=== PATIENT | female | born 1970 | race African-American/Black ===

== ENCOUNTER 2019-11-28 16:31 | Emergency (ER) | payer OTHER ==
--- OUTSIDE RECORDS SUMMARY | 2019-11-28 16:39 | XMS REPORT | Continuity of Care Document ---
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 Problems Description No Information Available Social History Type Date Description Comments Sex Unknown Tobacco Use Start: Unknown Patient has never smoked Smoking Status Reviewed: 10/14/19 Patient has never smoked Allergies, Adverse Reactions, Alerts Active Allergies Reaction Severity Comments Date Seasonal 08/25/2019 Amicar Nausea Mild Switch to subcutaneous 09/01/2019 Inactive Allergies NKDA 08/25/2019 Medications Active Medications SIG Qnty Indications Ordering Date Provider Duloxetine HCL take one cap by 60caps M79.[address] mouth daily for two MD Pushpa 0 Part weeks then increase to twice daily BD 1ML Tuberculin use for weekly 12units M06.9 Wagner Syringe/Safetyglide TB injection of MD Pushpa 9 Needle 27GX1/2" methotrexate, use 27G X 1/2" 1 1ml of methotrexate ML Misc (25mg) injected subcutaneously weekly Methotrexate Sodium Inject 25mg 6ml M06.9 Wagner 50mg/2ML subcutaneously MD Pushpa 9 Solution weekly Orencia Inject 125mg 12ml M06.9 Wagner 125mg/ml Soln Prefill subcutaneously MD Pushpa 9 Syringe weekly Hydroxychloroquine take one tab by 90tabs M06.9 Wagner Sulfate mouth daily MD Pushpa 9 200mg Tablets Levothyroxine Sodium 1 by mouth every Unknown 100mcg day 0 Tablets Orencia Unknown 125mg/ml Soln Prefill 0 Syringe Meloxicam James Estes, 7.5mg Tablets 0 Trazodone HCL James Estes, 50mg Tablets MD 0 Folic Acid Take one tab by 90tabs Wagner 1mg Tablets mouth daily except MD Pushpa 0 the day of methotrexate injection Hydroxychloroquine Unknown Sulfate 0 200mg Tablets History Medications BD 1ML for use weekly with 90units Wagner 09/03/2019 - Syringe/Needle/Slip sc methotrexate MD Pushpa 09/02/2019 Tip/Subq/26G X 5/8" 26G X 5/8" 1 ML Misc Securesafe Safety Insulin Inject 1ml (25mg) of 30units M06.9 Wagner 09/01 - Syringes/U-100/1ML/29GX1/ methotrexate MD Pushpa 09/02/2019 2" subcutaneously 29G X 1/2" 1 ML Misc weekly Immunizations CPT Code Status Date Vaccine Lot # [id number] Given 07/06/2019 Influenza Virus Vaccine, Quadrivalent, Split, Preservative Free Vital Signs Date Vital Result Comment 10/14/2019 8:04am Height 64 inches 5'4" Weight 167.00 lb Heart Rate 79 /min BP Systolic 113 mmHg BP Diastolic 81 mmHg Body Temperature 96.9 F Pain Level 8 O2 % BldC Oximetry 98 % BMI (Body Mass Index) 28.7 kg/m2 09/01/2019 2:56pm Height 64 inches 5'4" Weight 165.00 lb Heart Rate 76 /min BP Systolic 116 mmHg BP Diastolic 77 mmHg Body Temperature 96.9 F Pain Level 5 O2 % BldC Oximetry 100 % BMI (Body Mass Index) 28.3 kg/m2 Results Test Acquired Date Facility Test Result H/L Range Note Laboratory test 09/01/2019 [facility] Cyclic <15.6 U [address] [address] Igg [phone] Rheumatoid Factor < 10 IU/mL Normal <15 Erythrocyte Sed Rate 36 mm/Hr High 0-19 C Reactive Protein 3.62 mg/L Normal <8.01 Comp Metabolic 09/01/2019 [facility] Sodium 136 mmol/L Normal 135-[address] [place] [address] [phone] Potassium 3.8 mmol/L Normal 3.5-5.0 Chloride 102 mmol/L Normal 101-111 Co2 Carbon Dioxide 28 mmol/L Normal 22-32 Anion Gap 6 mmol/L Normal 2-11 Glucose 87 mg/dL Normal 70-100 Blood Urea Nitrogen 10 mg/dL Normal 6-24 Creatinine 0.66 mg/dL Normal 0.51-0.95 BUN/Creatinine Ratio 15.2 Normal 8-20 Calcium 9.6 mg/dL Normal 8.6-10.3 Total Protein 8.2 g/dL Normal 6.4-8.9 Albumin 4.0 g/dL Normal 3.2-5.2 Globulin 4.2 g/dL High 2-4 Albumin/Globulin Ratio 1.0 Normal 1-3 Total Bilirubin 0.30 mg/dL Normal 0.2-1.0 Alkaline Phosphatase 41 U/L Normal 34-104 Alt 12 U/L Normal 7-52 Ast 15 U/L Normal 13-39 Egfr Non- 95.6 >60 Egfr 115.7 >60 2 Quantiferon-TB 09/01/2019 [facility] QuantiferonTb Negative Negative 3 [address] [place] [address] [phone] TB1 Ag minus Nil Result 0.02 IU/mL TB2 Ag minus Nil Result 0.02 IU/mL Mitogen minus Nil Result 14.68 IU/mL Nil Result 0.04 IU/mL Laboratory test 09/01/2019 [facility] Hepatitis B Negative Negative [address] [place] [address] [phone] Hepatitis B Caty AB Titer Immune Immune Hepatitis C Antibody 09/01/2019 [facility] HCV Index 0.06 s/c [address] [place] [address] [phone] Hepatitis C Antibody Negative Negative Vitamin B12 09/01/2019 [facility] Vitamin B12 340 pg/mL Normal 180-9[address] [place] [address] [phone] Folic Acid (Folate) > 20.00 ng/mL >3.99 1 REFERENCE VALUE <20.0 (Negative) Test Performed by: [facility] [place] [address] Pattern Assembler: Reji Bennett M.D. Ph.D.; CLIA# [id number] 2 Because ethnic data is not always readily available, this report includes an eGFR for both -Americans and non- Americans. The National Kidney Disease Education Program (NKDEP) does not endorse the use of the MDRD equation for patients that are not between the ages of 18 and 70, are , have extremes of body size, muscle mass, or nutritional status, or are non- or non-. According to the National Kidney Foundation, irrespective of diagnosis, the stage of the disease is based on the level of kidney function: Stage Description GFR(mL/min/1.73 m(2)) 1 Kidney damage with normal or decreased GFR 90 2 Kidney damage with mild decrease in GFR 60-89 3 Moderate decrease in GFR 30-59 4 Severe decrease in GFR 15-29 5 Kidney failure <15 (or dialysis) 3 M. tuberculosis infection NOT likely 4 Test Performed by: [facility] [place] [address] Pattern Assembler: Reji Bennett M.D. Ph.D.; CLIA# [id number] 5 Normal Range 180 to 914 Indeterminate Range 145 to 180 Deficient Range <145 Procedures Description No Information Available Medical Devices Description No Information Available Encounters Type Date Location Provider Dx Diagnosis Office Visit 10/14/2019 Rheumatology Wagner Barrow, M06.9 Rheumatoid [facility] MD arthritis, Ccmob unspecified M79.7 Fibromyalgia M70.62 Trochanteric bursitis, left hip Office Visit 09/01/2019 3:00p Rheumatology Wagner M06.9 [facility] MD arthritis, Ccmob unspecified M54.5 Low back pain M25.552 Pain in left hip 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 R11.0 Nausea Assessments Date Code Description Provider 10/14/2019 M06.9 Rheumatoid arthritis, unspecified Wagner Barrow MD 10/14/2019 M79.7 Fibromyalgia Wagner Barrow MD 10/14/2019 M70.62 Trochanteric bursitis, left hip Wagner Barrow MD 09/01/2019 M06.9 Rheumatoid arthritis, unspecified Wagner Barrow MD 09/01/2019 M54.5 Low back pain Wagner Barrow MD 09/01/2019 M25.552 Pain in left hip Wagner Barrow MD 09/01/2019 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 Wagner Barrow MD 09/01/2019 R11.0 Nausea Wagner Barrow MD Plan of Treatment Future Appointment(s):01/13/2020 8:30 am - Wagner Barrow MD at [facility]10/14/2019 - Wagner Barrow MDM06.9 Rheumatoid arthritis , unspecifiedFollow up:3 [id number] FibromyalgiaNew Medication:Duloxetine HCL 30 mg - take one cap by mouth daily for two weeks then increase to twice cxxdkX29.62 Trochanteric bursitis, left hipNew Therapy:Physical Therapy Functional Status Description No Information Available Mental Status Description No Information Available Referrals Description No Information Available
[2019-11-28 17:02] VITALS: BP 120/79
[2019-11-28 17:48] LABS: Influenza A Molecular Negative (Negative); Influenza B Molecular Negative (Negative)
--- NOTE | 2019-11-28 17:55 | UC ---
FLU HPI - HPI Summary HPI Summary: 3 DAYS OF COUGH, CONGESTION, HEADACHE, BODY ACHES, SORE THROAT, CHILLS AND FATIGUE. NO FEVER. NO NAUSEA/VOMITING. - History of Current Complaint Chief Complaint: UCRespiratory Stated Complaint: FLU SYMPTOMS Time Seen by Provider: 11/28/19 17:09 Hx Obtained From: Patient Hx Last Menstrual Period: 3 wks ago Onset/Duration: Gradual Onset, Lasting Days, Still Present Severity Currently: Moderate Severity Initially: Moderate Pain Intensity: 7 Pain Scale Used: 0-10 Numeric Associated Signs & Symptoms: Positive: Myalgia, Cough, Sore Throat, Nasal Congestion, Headache. Negative: Fever - Allergy/Home Medications Allergies/Adverse Reactions: Allergies Allergy/AdvReac Type Severity Reaction Status Date / Time No Known Allergies Allergy Verified 11/28/19 17:02 Home Medications: Home Medications Levothyroxine TAB* [Synthroid 125 MCG TAB*] 1 tab PO DAILY 11/28/19 [History Confirmed 11/28/19] PMH/Surg Hx/FS Hx/Imm Hx - Additional Past Medical History Additional PMH: RA Endocrine History: Hypothyroidism - Surgical History Surgical History: None - Family History Known Family History: Positive: Non-Contributory - Social History Alcohol Use: None Substance Use Type: None Smoking Status (MU): Never Smoked Tobacco Review of Systems All Other Systems Reviewed And Are Negative: Yes Constitutional: Positive: Chills, Fatigue ENT: Positive: Sore Throat, Nasal Discharge Respiratory: Positive: Cough Cardiovascular: Positive: Negative Gastrointestinal: Positive: Negative Musculoskeletal: Positive: Myalgia Neurological/Mental Status: Positive: Headache Physical Exam Triage Information Reviewed: Yes Appearance: Well-Appearing, No Pain Distress, Well-Nourished Vital Signs: Initial Vital Signs Temp 98.8 F 11/28/19 16:59 Pulse 87 11/28/19 16:59 Resp 12 11/28/19 16:59 BP 120/79 11/28/19 16:59 Pulse Ox 100 11/28/19 16:59 Laboratory Tests 11/28/19 17:36 Influenza A (Rapid) Negative Influenza B (Rapid) Negative Vital Signs Reviewed: Yes Eyes: Positive: Conjunctiva Clear ENT: Positive: Hearing grossly normal, Pharynx normal, TMs normal Neck: Positive: Supple, Nontender, No Lymphadenopathy Respiratory Exam: Normal Cardiovascular Exam: Normal Abdomen Description: Positive: Soft Musculoskeletal: Positive: No Edema Neurological: Positive: Alert Psychological: Positive: Age Appropriate Behavior Skin: Negative: Rashes Flu Course/Dx - Course Course Of Treatment: FLU SWAB NEGATIVE. STILL LIKELY VIRALLY MEDIATED SYMPTOMS THAT SHOULD RESOLVE ON THEIR OWN WITH TIME. REST, HYDRATE, OTC MEDS NEEDED. FOLLOW-UP IF NOT IMPROVING EXPECTED. - Differential Dx/Diagnosis Provider Diagnosis: Flu-like symptoms Discharge ED - Sign-Out/Discharge Documenting (check all that apply): Patient Departure All imaging exams completed and their final reports reviewed: No Studies - Discharge Plan Condition: Stable Disposition: HOME Prescriptions: Codeine Phosphate/Guaifenesin [Codeine-Guaifen 10-100 mg/5 ml] 5 - 10 ml PO Q6H PRN #150 ml MDD 40ML PRN Reason: Cough predniSONE 20 mg TAB [Deltasone 20 MG TAB*] 40 mg PO DAILY #8 tab Patient Education Materials: Viral Syndrome (ED) Forms: *Work Release Referrals: Nieves Lew MD [Primary Care Provider] - If Needed Additional Instructions: FLU NEGATIVE. YOUR SYMPTOMS ARE LIKELY VIRALLY MEDIATED AND SHOULD RESOLVE ON THEIR OWN WITH TIME. NO INDICATION FOR ANTIBIOTICS AT PRESENT. REST, HYDRATE, OTC MEDS NEEDED. WILL TREAT WITH PREDNISONE TO HELP WITH AIRWAY INFLAMMATION AND COUGH MEDICINE. SEEK FOLLOW-UP IF YOU ARE NOT IMPROVING OVER THE NEXT 1-2 WEEKS. USE OTC AFRIN FOR NASAL CONGESTION IF NEEDED. 2 SPRAYS IN EACH NOSTRIL TWICE DAILY NEEDED. DO NOT USE FOR MORE THAN 3-4 DAYS IN A ROW TO PREVENT DEVELOPING REBOUND CONGESTION. - Billing Disposition and Condition Condition: STABLE Disposition: Home
[2019-11-28] MEDS ORDERED: guaiFENesin/CODIENE 100mg/10mg 5 ML UDC PO ONE (17:59)
== END 2019-11-28 18:00 | disposition home or self-care (01) ==
LOC: UCEAST 16:31
DX: R05 Cough (principal); R51 Headache; R53.83 Other fatigue; J02.9 Acute pharyngitis, unspecified; M79.10 Myalgia, unspecified site; R09.89 Other specified symptoms and signs involving the circulatory and respiratory systems; M06.9 Rheumatoid arthritis, unspecified; E03.9 Hypothyroidism, unspecified; Z79.890 Hormone replacement therapy
CPT/HCPCS: 99212; A9270-GY; G0463; J7512